=== PATIENT | male | born 1955 | race Caucasian/White ===

== ENCOUNTER 2017-06-06 07:43 | Emergency (ER) | payer OTHER, BC ==
[~2017-06-06] VITALS: Ht 172.7 cm; Wt 88.5 kg
--- NOTE | 2017-06-06 09:02 | REP ---
Left knee five views: There are no comparisons. There is diffuse demineralization. There is joint space narrowing of the medial compartment. There is slight osteophytic formation of the patellofemoral compartment. Lateral compartment is unremarkable. I suspect there is a small suprapatellar effusion. There is no fracture or dislocation. There are no calcifications or foreign bodies. 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 There is a small joint effusion. There is demineralization. No fracture or dislocation. Signed by Nikhil Jain MD 06/06/2017 08:52 A
[2017-06-06 09:19] VITALS: BP 170/104
[2017-06-06] MEDS ORDERED: NAPR500T PO (09:30)
== END 2017-06-06 09:41 | disposition home or self-care (01) ==
LOC: M ED 07:43
DX: M17.12 Unilateral primary osteoarthritis, left knee (principal); M23.92 Unspecified internal derangement of left knee; Y93.01 Activity, walking, marching and hiking; Y92.410 Unspecified street and highway as the place of occurrence of the external cause; Y99.9 Unspecified external cause status

== ENCOUNTER → 2017-06-30 | Outpatient (CLI) | payer BC ==
[~2017-06-30] MED LIST: NAPR500T PO
[2017-06-30 11:55] LABS: BASO % 0.8 % (0.0-1.0); EOS # 0.2 K/mm3 (0.0-0.50); EOS % 2.5 % (0.0-3.0); LARGE UNSTAINED CELL # 0.2 K/mm3 (0.0-0.4); LARGE UNSTAINED CELL % 2.4 % (0.0-4.0); LYMPH # 1.7 K/mm3 (1.5-4.5); LYMPH % 23.7 % (24.0-44.0); MEAN CORPUSCULAR HEMOGLOBIN 29.4 pg (27.0-33.0); MEAN CORPUSCULAR HGB CONC 33.8 g/dl (32.0-36.5); MEAN CORPUSCULAR VOLUME 86.9 fl (80.0-96.0); MONO # 0.6 K/mm3 (0.0-0.8); MONO % 7.8 % (0.0-5.0); NEUTROPHILS # 4.4 K/mm3 (1.8-7.7); NEUTROPHILS % 62.7 % (36.0-66.0); PLATELET COUNT, AUTOMATED 253 k/mm3 (150-450)
[2017-06-30 12:01] LABS: ALBUMIN 3.6 GM/DL (3.2-5.2); ALBUMIN/GLOBULIN RATIO 0.97 (1.00-1.93); ALKALINE PHOSPHATASE 75 U/L (45-117); ALT/SGPT 41 U/L (12-78); ANION GAP 7 MEQ/L (8-16); AST/SGOT 16 U/L (15-37); BILIRUBIN,TOTAL 0.7 MG/DL (0.2-1.0); BLOOD UREA NITROGEN 12 MG/DL (7-18); CALCIUM LEVEL 9.7 MG/DL (8.8-10.2); CARBON DIOXIDE LEVEL 31 MEQ/L (21-32); CHLORIDE LEVEL 105 MEQ/L (98-107); CHOLESTEROL LEVEL 214 MG/DL (<200); CREATININE FOR GFR 1.01 MG/DL (0.70-1.30); GLOMERULAR FILTRATION RATE > 60.0 (>49); GLUCOSE, FASTING 105 MG/DL (80-110); SODIUM LEVEL 143 MEQ/L (136-145); TOTAL PROTEIN 7.3 GM/DL (6.4-8.2); TRIGLYCERIDES LEVEL 144 MG/DL (<150)
[2017-06-30 12:11] LABS: POTASSIUM SERUM 5.6 MEQ/L (3.5-5.1)
== END ==
LOC: M WUC 09:35
PROVIDERS: ATTEND Physician Assistant Medical
DX: Z00.00 Encounter for general adult medical examination without abnormal findings (principal); Z12.5 Encounter for screening for malignant neoplasm of prostate; I10 Essential (primary) hypertension
CPT/HCPCS: 36415; 80053; 80061; 85025; G0103

== ENCOUNTER → 2017-08-17 | Outpatient (CLI) | payer BC ==
[2017-08-17 14:40] LABS: ANION GAP 5 MEQ/L (8-16); BLOOD UREA NITROGEN 14 MG/DL (7-18); CALCIUM LEVEL 9.6 MG/DL (8.8-10.2); CARBON DIOXIDE LEVEL 30 MEQ/L (21-32); CHLORIDE LEVEL 105 MEQ/L (98-107); CHOLESTEROL LEVEL 232 MG/DL (<200); CREATININE FOR GFR 0.85 MG/DL (0.70-1.30); GLOMERULAR FILTRATION RATE > 60.0 (>49); GLUCOSE, FASTING 95 MG/DL (80-110); POTASSIUM SERUM 4.5 MEQ/L (3.5-5.1); SODIUM LEVEL 140 MEQ/L (136-145); TRIGLYCERIDES LEVEL 152 MG/DL (<150)
[2017-08-18 14:09] LABS: PSA FREE 0.48 ng/mL
== END ==
LOC: M WUC 10:54
PROVIDERS: ATTEND Physician Assistant Medical
DX: R97.20 Elevated prostate specific antigen [PSA] (principal); R73.01 Impaired fasting glucose; E78.5 Hyperlipidemia, unspecified

== ENCOUNTER → 2017-09-28 | Outpatient (CLI) | payer BC | LOC: M WUC 16:01 | PROVIDERS: ATTEND Physician Assistant Medical | DX: R97.20 Elevated prostate specific antigen [PSA] (principal); R73.01 Impaired fasting glucose; R78.5 Finding of other psychotropic drug in blood | CPT/HCPCS: 36415; 80061; 82947; 83036; G0103 ==

== ENCOUNTER → 2018-04-05 | Outpatient (CLI) | payer BC ==
[2018-04-05 12:11] LABS: ESTIMATED AVERAGE GLUCOSE 123 MG/DL (60-110); HEMOGLOBIN A1c 5.9 %
[2018-04-05 12:27] LABS: ANION GAP 6 MEQ/L (8-16); BLOOD UREA NITROGEN 16 MG/DL (7-18); CALCIUM LEVEL 9.6 MG/DL (8.8-10.2); CARBON DIOXIDE LEVEL 31 MEQ/L (21-32); CHLORIDE LEVEL 106 MEQ/L (98-107); CHOLESTEROL LEVEL 211 MG/DL (<200); CHOLESTEROL RISK RATIO 4.688 (<5); GLOMERULAR FILTRATION RATE > 60.0 (>49); GLUCOSE, FASTING 102 MG/DL (70-100); HDL CHOLESTEROL 45 MG/DL (>40); LDL CHOLESTEROL 149.6 MG/DL (<100); NON-HDL-C 166 MG/DL; POTASSIUM SERUM 4.8 MEQ/L (3.5-5.1); PSA SCREENING 4.38 NG/ML (< 4.0); SODIUM LEVEL 143 MEQ/L (136-145); TRIGLYCERIDES LEVEL 82 MG/DL (<150)
== END ==
LOC: M WUC 10:23
DX: I10 Essential (primary) hypertension (principal); E78.5 Hyperlipidemia, unspecified; R73.01 Impaired fasting glucose; R97.20 Elevated prostate specific antigen [PSA]

== ENCOUNTER 2018-07-23 08:28 | Inpatient (IN) | payer BC ==
[2018-07-23] MEDS: LR 1,000 ML IV ×3 (09:11→13:30)
[2018-07-23] MEDS ORDERED: MIDAZOLAM INJ 2 MG/2 ML VIAL (J2250) As Ordered ×2 (10:02→10:38)
[2018-07-23] MEDS ORDERED: fentaNYL 100 MCG/2 ML INJECTION (J3010) As Ordered ×2 (10:02→10:38)
[2018-07-23] MEDS: MIDAZOLAM INJ 2 MG/2 ML VIAL (J2250) IV ×2 (10:24→10:38)
[2018-07-23] MEDS: fentaNYL 100 MCG/2 ML INJECTION (J3010) IV ×2 (10:24→10:38)
[2018-07-23] MEDS ORDERED: PROPOFOL 200 MG/20 ML VIAL As Ordered (10:34)
[2018-07-23] MEDS ORDERED: BUPIVACAINE/DEXTROSE 0.75% 2 ML AMP As Ordered (10:36)
[2018-07-23] MEDS ORDERED: fentaNYL 100 MCG/2 ML INJECTION (J3010) IV ×2 (11:15→13:30)
[2018-07-23] MEDS ORDERED: LIDOCAINE 2% INJ 100 MG/5 ML SDV (FOR ANES.) As Ordered (11:49)
[2018-07-23] MEDS ORDERED: dexameTHASONE 4 MG/ML 1ML VIAL (J1100) As Ordered ×3 (11:49)
[2018-07-23] MEDS ORDERED: ONDANSETRON 4MG/2ML VIAL (J2405) As Ordered (11:49)
[2018-07-23] MEDS: BUPIVACAINE LIPOSOME/PF 1.3% 20 ML VIAL (13.3MG/ML)(EXPAREL) As Ordered (11:50)
[2018-07-23] MEDS: TRANEXAMIC ACID 100 MG/ML 10ML VIAL As Ordered (11:50)
[2018-07-23] MEDS: EPINEPHrine INJ 1 MG/ML 1ML AMP As Ordered (11:50)
[2018-07-23] MEDS: ceFAZolin 1GM INJ (J0690 PER 500MG) As Ordered (11:50)
[2018-07-23] MEDS ORDERED: MORPHINE 1MG/ML IN 0.9% NACL 100ML IV BAG As Ordered (12:38)
[2018-07-23] MEDS ORDERED: EPIDURAL/PCA KEYS XX (13:30)
[2018-07-23] MEDS ORDERED: ONDANSETRON 4MG/2ML VIAL (J2405) IV ×3 (13:30)
[2018-07-23] MEDS ORDERED: NALBUPHINE HCL 10 MG/ML AMP (J2300) IV (13:30)
[2018-07-23] MEDS ORDERED: FLEET ENEMA PR (13:30)
[2018-07-23] MEDS ORDERED: MORPHINE 1MG/ML IN 0.9% NACL 100ML IV BAG IV (13:30)
[2018-07-23] MEDS ORDERED: diphenhydrAMINE INJ 50MG/ML VIAL (J1200) IV (13:30)
[2018-07-23] MEDS ORDERED: ACETAMINOPHEN TAB 650MG DOSE (2X325MG) PO (13:30)
[2018-07-23] MEDS ORDERED: METOCLOPRAMIDE INJ 10MG/2ML VIAL (J2765) IV (13:30)
[2018-07-23] MEDS ORDERED: NALOXONE INJ 0.4 MG/1 ML VIAL (J2310) IV (13:30)
[2018-07-23] MEDS: PERCOCET 5MG/325MG TAB PO (14:15)
[2018-07-23] MEDS ORDERED: BISACODYL 5 MG TAB PO (14:30)
[2018-07-23] MEDS: amLODIPine 10 MG TAB PO (17:29)
[2018-07-23] MEDS: SENOKOT S TAB PO (19:57)
[2018-07-23] MEDS ORDERED: DOCUSATE SODIUM 100 MG CAP PO (21:00)
[2018-07-24] MEDS: LR 1,000 ML IV (03:21)
[2018-07-24] MEDS: amLODIPine 10 MG TAB PO ×2 (03:22→08:07)
[2018-07-24] MEDS ORDERED: ONDANSETRON 4 MG TAB (S0181) PO (06:45)
[2018-07-24 07:22] LABS: HEMATOCRIT 37.5 % (42.0-52.0); HEMOGLOBIN 12.9 g/dl (13.5-17.5); MEAN CORPUSCULAR HEMOGLOBIN 29.1 pg (27.0-33.0); MEAN CORPUSCULAR HGB CONC 34.4 g/dl (32.0-36.5); MEAN CORPUSCULAR VOLUME 84.5 fl (80.0-96.0); PLATELET COUNT, AUTOMATED 258 10^3/uL (150-450); RED BLOOD COUNT 4.44 10^6/uL (4.30-6.10); RED CELL DISTRIBUTION WIDTH 13.2 % (11.5-14.5); WHITE BLOOD COUNT 19.5 10^3/uL (4.0-10.0)
[2018-07-24] MEDS: MIRALAX *UNIT DOSE* 17GM PACKET PO (08:04)
[2018-07-24] MEDS: MOM 30ML SUSPENSION UDC PO (08:04)
[2018-07-24] MEDS: RIVAROXABAN 10 MG TAB (XARELTO) PO (08:07)
[2018-07-24] MEDS: PERCOCET 5MG/325MG TAB PO (08:07)
[2018-07-24] MEDS: SENOKOT S TAB PO ×2 (08:07→20:38)
[2018-07-24] MEDS: LISINOPRIL 20 MG TAB PO (08:07)
[2018-07-24 08:10] LABS: ALBUMIN 3.4 GM/DL (3.2-5.2); ALBUMIN/GLOBULIN RATIO 0.92 (1.00-1.93); ALKALINE PHOSPHATASE 56 U/L (45-117); ALT/SGPT 26 U/L (12-78); ANION GAP 9 MEQ/L (8-16); AST/SGOT 15 U/L (7-37); BILIRUBIN,TOTAL 0.5 MG/DL (0.2-1.0); BLOOD UREA NITROGEN 15 MG/DL (7-18); CALCIUM LEVEL 10.1 MG/DL (8.8-10.2); CARBON DIOXIDE LEVEL 25 MEQ/L (21-32); CHLORIDE LEVEL 104 MEQ/L (98-107); CREATININE FOR GFR 1.16 MG/DL (0.70-1.30); GLOMERULAR FILTRATION RATE > 60.0 (>49); GLUCOSE, FASTING 161 MG/DL (70-100); MAGNESIUM LEVEL 1.8 MG/DL (1.8-2.4); SODIUM LEVEL 138 MEQ/L (136-145); TOTAL PROTEIN 7.1 GM/DL (6.4-8.2)
[2018-07-24] MEDS ORDERED: TAMSULOSIN 0.4 MG CAP PO (09:00)
[2018-07-24] MEDS: TAMSULOSIN 0.4 MG CAP PO (15:57)
[2018-07-25] MEDS: PERCOCET 5MG/325MG TAB PO (06:22)
[2018-07-25 07:25] LABS: HEMATOCRIT 35.1 % (42.0-52.0); HEMOGLOBIN 11.9 g/dl (13.5-17.5); MEAN CORPUSCULAR HEMOGLOBIN 28.7 pg (27.0-33.0); MEAN CORPUSCULAR HGB CONC 33.9 g/dl (32.0-36.5); MEAN CORPUSCULAR VOLUME 84.6 fl (80.0-96.0); PLATELET COUNT, AUTOMATED 236 10^3/uL (150-450); RED BLOOD COUNT 4.15 10^6/uL (4.30-6.10); RED CELL DISTRIBUTION WIDTH 13.5 % (11.5-14.5)
[2018-07-25 07:53] LABS: ESTIMATED AVERAGE GLUCOSE 126 MG/DL (60-110)
[2018-07-25 08:01] LABS: ANION GAP 8 MEQ/L (8-16); BLOOD UREA NITROGEN 12 MG/DL (7-18); CARBON DIOXIDE LEVEL 27 MEQ/L (21-32); CHLORIDE LEVEL 107 MEQ/L (98-107); CHOLESTEROL LEVEL 168 MG/DL (<200); CHOLESTEROL RISK RATIO 2.947 (<5); CREATININE FOR GFR 1.03 MG/DL (0.70-1.30); GLOMERULAR FILTRATION RATE > 60.0 (>49); GLUCOSE, FASTING 124 MG/DL (70-100); HDL CHOLESTEROL 57 MG/DL (>40); LDL CHOLESTEROL 85 MG/DL (<100); MAGNESIUM LEVEL 1.9 MG/DL (1.8-2.4); NON-HDL-C 111 MG/DL; POTASSIUM SERUM 4.1 MEQ/L (3.5-5.1); SODIUM LEVEL 142 MEQ/L (136-145); TRIGLYCERIDES LEVEL 129 MG/DL (<150)
[2018-07-25] MEDS: SENOKOT S TAB PO (08:15)
[2018-07-25] MEDS: MIRALAX *UNIT DOSE* 17GM PACKET PO (08:15)
[2018-07-25] MEDS: RIVAROXABAN 10 MG TAB (XARELTO) PO (08:15)
[2018-07-25] MEDS: MOM 30ML SUSPENSION UDC PO (08:15)
[2018-07-25] MEDS: TAMSULOSIN 0.4 MG CAP PO (08:15)
[2018-07-25] MEDS: LISINOPRIL 20 MG TAB PO (08:16)
[2018-07-25] MEDS: amLODIPine 10 MG TAB PO (08:16)
== END 2018-07-25 13:50 | disposition home health service (06) | DRG 302 ==
LOC: M OR 08:28 → M MS5PR 15:35
PROC: 0SRD0J9 Replacement of Left Knee Joint with Synthetic Substitute, Cemented, Open Approach (ICD-10-PCS; principal; 2018-07-23 11:00)
DX: M17.12 Unilateral primary osteoarthritis, left knee (principal); I11.9 Hypertensive heart disease without heart failure; R33.9 Retention of urine, unspecified; R73.01 Impaired fasting glucose; E78.5 Hyperlipidemia, unspecified; Z87.891 Personal history of nicotine dependence; Z79.899 Other long term (current) drug therapy

== ENCOUNTER → 2018-10-18 | Outpatient (CLI) | payer BC ==
[2018-10-18 11:25] LABS: PROSTATIC SPECIFIC AG MONITOR 5.7 NG/ML (< 4.0)
== END ==
LOC: M WUC 09:23
DX: R97.20 Elevated prostate specific antigen [PSA] (principal)
CPT/HCPCS: 84153

== ENCOUNTER → 2019-04-25 | Outpatient (CLI) | payer BC ==
[~2019-04-25] MED LIST changes: +ALEV220T26 PO; +AMLO10TA5 PO; +FLOM0.4C39 PO; +LISI-538 PO; +LISI40TA PO; +NAPR-837 PO; +NAPR-885 PO; -NAPR500T PO; +PERC5TAB12 PO; +XARE10TA PO
[2019-04-25 13:12] LABS: ALBUMIN 3.9 GM/DL (3.2-5.2); ALT/SGPT 39 U/L (12-78); BILIRUBIN,TOTAL 0.7 MG/DL (0.2-1.0); BLOOD UREA NITROGEN 11 MG/DL (7-18); CALCIUM LEVEL 10.2 MG/DL (8.8-10.2); CARBON DIOXIDE LEVEL 31 MEQ/L (21-32); CHLORIDE LEVEL 104 MEQ/L (98-107); CHOLESTEROL LEVEL 250 MG/DL (<200); CHOLESTEROL RISK RATIO 5.434 (<5); CREATININE FOR GFR 0.98 MG/DL (0.70-1.30); GLOMERULAR FILTRATION RATE > 60.0 (>49); GLUCOSE, FASTING 108 MG/DL (70-100); HDL CHOLESTEROL 46 MG/DL (>40); LDL CHOLESTEROL 173 MG/DL (<100); NON-HDL-C 204 MG/DL; SODIUM LEVEL 140 MEQ/L (136-145); TOTAL PROTEIN 7.7 GM/DL (6.4-8.2); TRIGLYCERIDES LEVEL 154 MG/DL (<150)
[2019-04-25 14:13] LABS: HEMOGLOBIN A1c 6.6 %
== END ==
LOC: M WUC 09:18
PROVIDERS: ATTEND Physician Assistant Medical
DX: R73.01 Impaired fasting glucose (principal); I10 Essential (primary) hypertension; E78.5 Hyperlipidemia, unspecified; R97.20 Elevated prostate specific antigen [PSA]
CPT/HCPCS: 36415; 80053; 80061; 83036; G0103

== ENCOUNTER → 2019-11-01 | Outpatient (CLI) | payer BC ==
[2019-11-01 13:30] LABS: ALBUMIN 3.8 GM/DL (3.2-5.2); ALT/SGPT 64 U/L (12-78); BILIRUBIN,TOTAL 0.6 MG/DL (0.2-1.0); BLOOD UREA NITROGEN 13 MG/DL (7-18); CARBON DIOXIDE LEVEL 29 MEQ/L (21-32); CHLORIDE LEVEL 105 MEQ/L (98-107); CHOLESTEROL LEVEL 244 MG/DL (<200); CHOLESTEROL RISK RATIO 5.674 (<5); CREATININE FOR GFR 1.09 MG/DL (0.70-1.30); GLOMERULAR FILTRATION RATE > 60.0 (>49); GLUCOSE, FASTING 113 MG/DL (70-100); HDL CHOLESTEROL 43 MG/DL (>40); LDL CHOLESTEROL 161 MG/DL (<100); NON-HDL-C 201 MG/DL; POTASSIUM SERUM 5.1 MEQ/L (3.5-5.1); SODIUM LEVEL 141 MEQ/L (136-145); TOTAL PROTEIN 7.8 GM/DL (6.4-8.2); TRIGLYCERIDES LEVEL 198 MG/DL (<150)
[2019-11-01 13:41] LABS: HEMOGLOBIN A1c 6.5 %
== END ==
LOC: M WUC 09:07
PROVIDERS: ATTEND Physician Assistant
DX: I10 Essential (primary) hypertension (principal); R73.01 Impaired fasting glucose; R97.20 Elevated prostate specific antigen [PSA]; E78.5 Hyperlipidemia, unspecified
CPT/HCPCS: 36415; 80053; 80061; 83036; G0103

== ENCOUNTER → 2020-04-27 | Outpatient (CLI) | payer BC ==
[2020-04-27 10:32] LABS: HEMOGLOBIN A1c 6.9 %
[2020-04-27 10:47] LABS: ALBUMIN 3.6 GM/DL (3.2-5.2); ALT/SGPT 46 U/L (12-78); BILIRUBIN,TOTAL 0.5 MG/DL (0.2-1.0); BLOOD UREA NITROGEN 13 MG/DL (7-18); CALCIUM LEVEL 9.3 MG/DL (8.8-10.2); CARBON DIOXIDE LEVEL 29 MEQ/L (21-32); CHLORIDE LEVEL 105 MEQ/L (98-107); CHOLESTEROL LEVEL 227 MG/DL (<200); CHOLESTEROL RISK RATIO 5.536 (<5); CREATININE FOR GFR 0.83 MG/DL (0.70-1.30); GLOMERULAR FILTRATION RATE > 60.0 (>49); GLUCOSE, FASTING 105 MG/DL (70-100); HDL CHOLESTEROL 41 MG/DL (>40); LDL CHOLESTEROL 146 MG/DL (<100); NON-HDL-C 186 MG/DL; POTASSIUM SERUM 4.5 MEQ/L (3.5-5.1); SODIUM LEVEL 139 MEQ/L (136-145); TOTAL PROTEIN 7.1 GM/DL (6.4-8.2); TRIGLYCERIDES LEVEL 201 MG/DL (<150)
== END ==
LOC: M WUC 08:30
PROVIDERS: ATTEND Physician Assistant
DX: I10 Essential (primary) hypertension (principal); R73.01 Impaired fasting glucose; R97.20 Elevated prostate specific antigen [PSA]; E78.5 Hyperlipidemia, unspecified
CPT/HCPCS: 36415; 80053; 80061; 83036; G0103

== ENCOUNTER → 2020-07-23 | Outpatient (CLI) | payer BC ==
[~2020-07-23] MED LIST changes: -AMLO10TA5 PO; +AMLO1TAB25 PO; +HYDR25TAB PO
[2020-07-23 13:34] LABS: ALBUMIN 3.4 GM/DL (3.2-5.2); ALT/SGPT 37 U/L (12-78); BILIRUBIN,TOTAL 0.6 MG/DL (0.2-1.0); BLOOD UREA NITROGEN 14 MG/DL (7-18); CALCIUM LEVEL 9.7 MG/DL (8.8-10.2); CARBON DIOXIDE LEVEL 31 MEQ/L (21-32); CHLORIDE LEVEL 105 MEQ/L (98-107); CHOLESTEROL LEVEL 224 MG/DL (<200); GLOMERULAR FILTRATION RATE > 60.0 (>49); GLUCOSE, FASTING 95 MG/DL (70-100); HDL CHOLESTEROL 50 MG/DL (>40); LDL CHOLESTEROL 146 MG/DL (<100); NON-HDL-C 174 MG/DL; POTASSIUM SERUM 5.5 MEQ/L (3.5-5.1); SODIUM LEVEL 139 MEQ/L (136-145); TOTAL PROTEIN 7.3 GM/DL (6.4-8.2); TRIGLYCERIDES LEVEL 141 MG/DL (<150)
[2020-07-23 13:47] LABS: CREATININE, URINE 97.4 MG/DL; HEMOGLOBIN A1c 6.1 %; MAU/CREAT RATIO 296.7 MCG/MG (0.0-30.0)
== END ==
LOC: M WUC 09:19
PROVIDERS: ATTEND Physician Assistant
DX: R73.01 Impaired fasting glucose (principal); E78.5 Hyperlipidemia, unspecified

== ENCOUNTER → 2020-08-21 | Outpatient (CLI) | payer BC ==
[~2020-08-21] MED LIST changes: +HYDR25TAB; -HYDR25TAB PO
== END ==
LOC: M LABSMTC 08:09
PROVIDERS: ATTEND Anesthesiology
DX: Z01.812 Encounter for preprocedural laboratory examination (principal); Z20.828 Contact with and (suspected) exposure to other viral communicable diseases
CPT/HCPCS: C9803; U0003

== ENCOUNTER 2020-08-26 06:22 | Day surgery (SDC) | payer BC ==
[~2020-08-26] VITALS: Ht 172.7 cm; Wt 86.2 kg
[~2020-08-26 06:22] MED LIST changes: -HYDR25TAB; +HYDR25TAB PO
[2020-08-26] MEDS ORDERED: DUOVISC (0.50ML VISCOAT/0.55ML PROVISC) OPHTH KIT As Ordered ONE (06:41)
[2020-08-26] MEDS ORDERED: POVIDONE-IODINE 5% OPHTH PREP SOL 30ML As Ordered ONE (06:41)
[2020-08-26] MEDS ORDERED: CEFUROXIME 1MG/0.1ML INTRACAMERAL INJ As Ordered ONE (06:41)
[2020-08-26] MEDS ORDERED: BSS IRR 500ML/OMIDRIA 4ML IRR BAG (OR ONLY) (J1097 PER ML) As Ordered ONE (06:49)
[2020-08-26] MEDS ORDERED: PROPARACAINE 0.5% OPHTH SOL 15ML OD ONE (07:00)
[2020-08-26] MEDS ORDERED: PHENYLEPHRINE 2.5% OPHTH SOL 2ML OD ONE (07:00)
[2020-08-26] MEDS ORDERED: OFLOXACIN 0.3 % (OCUFLOX) OPTH SOL 5ML OD ONE (07:00)
[2020-08-26] MEDS ORDERED: TROPICAMIDE 1% OPHTH SOLN 2ML OD ONE (07:00)
[2020-08-26] MEDS ORDERED: fentaNYL 100 MCG/2 ML INJECTION (J3010) As Ordered ONE (07:05)
[2020-08-26] MEDS ORDERED: MIDAZOLAM INJ 2MG/2ML VIAL (J2250 PER 1MG) As Ordered ONE (07:05)
[2020-08-26 08:25] VITALS: BP 129/75
== END 2020-08-26 08:40 | disposition home or self-care (01) ==
LOC: M SDC 06:22
PROVIDERS: ATTEND Ophthalmology
DX: H25.11 Age-related nuclear cataract, right eye (principal); I10 Essential (primary) hypertension; Z79.899 Other long term (current) drug therapy
CPT/HCPCS: 66984; J1097; J2250; J3010

== ENCOUNTER → 2020-09-18 | Outpatient (CLI) | payer BC | LOC: M LABSMTC 08:07 | PROVIDERS: ATTEND Anesthesiology | DX: Z01.818 Encounter for other preprocedural examination (principal); Z20.828 Contact with and (suspected) exposure to other viral communicable diseases | CPT/HCPCS: C9803; U0003 ==

== ENCOUNTER 2020-09-23 07:00 | Day surgery (SDC) | payer BC ==
[~2020-09-23] VITALS: Ht 172.7 cm; Wt 84.8 kg
[~2020-09-23 07:00] MED LIST changes: +BSS IRR 500ML/OMIDRIA 4ML IRR BAG (OR ONLY) (J1097 PER ML) As Ordered ONE; +CEFUROXIME 1MG/0.1ML INTRACAMERAL INJ As Ordered ONE; +DUOVISC (0.50ML VISCOAT/0.55ML PROVISC) OPHTH KIT As Ordered ONE; +OFLOXACIN 0.3 % (OCUFLOX) OPTH SOL 5ML OS ONE; +PHENYLEPHRINE 2.5% OPHTH SOL 2ML OS ONE; +POVIDONE-IODINE 5% OPHTH PREP SOL 30ML As Ordered ONE; +PROPARACAINE 0.5% OPHTH SOL 15ML OS ONE; +TROPICAMIDE 1% OPHTH SOLN 2ML OS ONE
[2020-09-23] MEDS ORDERED: MIDAZOLAM INJ 2MG/2ML VIAL (J2250 PER 1MG) As Ordered ONE (07:08)
[2020-09-23] MEDS ORDERED: fentaNYL 100 MCG/2 ML INJECTION (J3010) As Ordered ONE (07:09)
[2020-09-23 09:50] VITALS: BP 129/82
== END 2020-09-23 09:50 | disposition home or self-care (01) ==
LOC: M SDC 07:00
PROVIDERS: ATTEND Ophthalmology
DX: H25.12 Age-related nuclear cataract, left eye (principal); I10 Essential (primary) hypertension; R73.03 Prediabetes; M10.9 Gout, unspecified; Z79.899 Other long term (current) drug therapy
CPT/HCPCS: 66984; J2250; J3010

== ENCOUNTER → 2021-01-21 | Outpatient (CLI) | payer BC ==
[~2021-01-21] MED LIST changes: -BSS IRR 500ML/OMIDRIA 4ML IRR BAG (OR ONLY) (J1097 PER ML) As Ordered ONE; -CEFUROXIME 1MG/0.1ML INTRACAMERAL INJ As Ordered ONE; -DUOVISC (0.50ML VISCOAT/0.55ML PROVISC) OPHTH KIT As Ordered ONE; +HYDR-3490 PO; -HYDR25TAB PO; -LISI-538 PO; +LISI20TA33 PO; -LISI40TA PO; +LISI40TA4 PO; -OFLOXACIN 0.3 % (OCUFLOX) OPTH SOL 5ML OS ONE; -PHENYLEPHRINE 2.5% OPHTH SOL 2ML OS ONE; -POVIDONE-IODINE 5% OPHTH PREP SOL 30ML As Ordered ONE; -PROPARACAINE 0.5% OPHTH SOL 15ML OS ONE; -TROPICAMIDE 1% OPHTH SOLN 2ML OS ONE
[2021-01-21 11:11] LABS: BLOOD UREA NITROGEN 24 MG/DL (7-18); CARBON DIOXIDE LEVEL 31 MEQ/L (21-32); CHLORIDE LEVEL 104 MEQ/L (98-107); CREATININE FOR GFR 1.18 MG/DL (0.70-1.30); GLOMERULAR FILTRATION RATE > 60.0 (>49); GLUCOSE, FASTING 118 MG/DL (70-100); POTASSIUM SERUM 4.6 MEQ/L (3.5-5.1); SODIUM LEVEL 140 MEQ/L (136-145)
== END ==
LOC: M WUC 08:27
PROVIDERS: ATTEND Nurse Practitioner Family
DX: E87.5 Hyperkalemia (principal)

== ENCOUNTER → 2021-07-29 | Outpatient (CLI) | payer BC ==
[2021-07-29 16:40] LABS: ALBUMIN 3.8 GM/DL (3.2-5.2); ALT/SGPT 39 U/L (12-78); BILIRUBIN,TOTAL 0.9 MG/DL (0.2-1.0); BLOOD UREA NITROGEN 15 MG/DL (7-18); CALCIUM LEVEL 9.9 MG/DL (8.8-10.2); CARBON DIOXIDE LEVEL 29 MEQ/L (21-32); CHLORIDE LEVEL 103 MEQ/L (98-107); CHOLESTEROL LEVEL 201 MG/DL (<200); CHOLESTEROL RISK RATIO 4.276 (<5); CREATININE FOR GFR 0.98 MG/DL (0.70-1.30); GLOMERULAR FILTRATION RATE > 60.0 (>49); GLUCOSE, FASTING 92 MG/DL (70-100); HDL CHOLESTEROL 47 MG/DL (>40); LDL CHOLESTEROL 132 MG/DL (<100); NON-HDL-C 154 MG/DL; POTASSIUM SERUM 4.2 MEQ/L (3.5-5.1); SODIUM LEVEL 138 MEQ/L (136-145); TOTAL PROTEIN 7.5 GM/DL (6.4-8.2); TRIGLYCERIDES LEVEL 109 MG/DL (<150)
[2021-07-29 16:54] LABS: MALB URINE SIEMENS 40.3 MG/L
[2021-07-29 17:13] LABS: HEMOGLOBIN A1c 6.5 %
== END ==
LOC: M WUC 14:49
PROVIDERS: ATTEND Nurse Practitioner Family
DX: R73.03 Prediabetes (principal); I10 Essential (primary) hypertension; R97.20 Elevated prostate specific antigen [PSA]
CPT/HCPCS: 36415; 80053; 80061; 82043; 83036; G0103

== ENCOUNTER → 2022-08-04 | Outpatient (CLI) | payer BC, MEDICARE ==
[2022-08-04 12:47] LABS: HEMOGLOBIN A1c 6.6 %
[2022-08-04 13:04] LABS: ALBUMIN 3.7 GM/DL (3.2-5.2); ALT/SGPT 44 U/L (12-78); BILIRUBIN,TOTAL 0.7 MG/DL (0.2-1.0); BLOOD UREA NITROGEN 15 MG/DL (7-18); CALCIUM LEVEL 9.3 MG/DL (8.8-10.2); CARBON DIOXIDE LEVEL 29 MEQ/L (21-32); CHLORIDE LEVEL 107 MEQ/L (98-107); CHOLESTEROL LEVEL 209 MG/DL (<200); CHOLESTEROL RISK RATIO 4.354 (<5); CREATININE FOR GFR 0.96 MG/DL (0.70-1.30); GLOMERULAR FILTRATION RATE > 60.0 (>49); GLUCOSE, FASTING 119 MG/DL (70-100); HDL CHOLESTEROL 48 MG/DL (>40); LDL CHOLESTEROL 142 MG/DL (<100); NON-HDL-C 161 MG/DL; POTASSIUM SERUM 4.6 MEQ/L (3.5-5.1); SODIUM LEVEL 139 MEQ/L (136-145); TOTAL PROTEIN 7.1 GM/DL (6.4-8.2); TRIGLYCERIDES LEVEL 97 MG/DL (<150)
[2022-08-04 13:12] LABS: MALB URINE SIEMENS 14.4 MG/L; MAU/CREAT RATIO 14.1 MCG/MG (0.0-30.0)
== END ==
LOC: M WUC 09:01
PROVIDERS: ATTEND Nurse Practitioner Family
DX: E78.5 Hyperlipidemia, unspecified (principal); I10 Essential (primary) hypertension; R73.03 Prediabetes; R97.20 Elevated prostate specific antigen [PSA]
CPT/HCPCS: 36415; 80053; 80061; 82043; 83036; G0103

== ENCOUNTER → 2023-04-12 | Outpatient (CLI) | payer MEDICARE ==
[2023-04-12 12:34] LABS: BASO # 0.1 10^3/uL (0.0-0.2); EOS # 0.3 10^3/uL (0.0-0.5); EOS % 4.1 % (0.0-3.0); HEMATOCRIT 41.2 % (42.0-52.0); HEMOGLOBIN 13.6 g/dl (13.5-17.5); LYMPH % 24.9 % (24.0-44.0); MEAN CORPUSCULAR HEMOGLOBIN 28.6 pg (27.0-33.0); MEAN CORPUSCULAR VOLUME 86.7 fl (80.0-96.0); MONO # 0.8 10^3/uL (0.0-0.8); MONO % 10.1 % (2.0-8.0); NEUTROPHILS # 4.6 10^3/uL (1.5-8.5); PLATELET COUNT, AUTOMATED 322 10^3/uL (150-450); RED BLOOD COUNT 4.75 10^6/uL (4.30-6.10); WHITE BLOOD COUNT 7.8 10^3/uL (4.0-10.0)
[2023-04-12 12:48] LABS: HEMOGLOBIN A1c 7.1 % (4.0-6.0)
[2023-04-12 13:04] LABS: BLOOD UREA NITROGEN 12 MG/DL (9-23); CARBON DIOXIDE LEVEL 28 MMOL/L (20-31); CHLORIDE LEVEL 104 MMOL/L (98-107); CREATININE FOR GFR 0.76 MG/DL (0.70-1.30); GLOMERULAR FILTRATION RATE > 60.0 (>49); GLUCOSE, FASTING 159 MG/DL (74-106); SODIUM LEVEL 138 MMOL/L (136-145)
== END ==
LOC: M WUC 10:11
PROVIDERS: ATTEND Nurse Practitioner Family
DX: I10 Essential (primary) hypertension (principal)

== ENCOUNTER 2023-05-02 09:33 | Day surgery (SDC) | payer MEDICARE ==
[~2023-05-02] VITALS: Ht 172.7 cm; Wt 83.5 kg
[~2023-05-02 09:33] MED LIST changes: +CelecoXIB 400 MG CAP PO ONE; +ceFAZolin SOD 2 GM in IV 1 EA IV ONE
[2023-05-02] MEDS ORDERED: LR 1,000 ML IV SCH ×2 (10:35→13:15)
[2023-05-02] MEDS ORDERED: fentaNYL 100 MCG/2 ML INJECTION As Ordered ONE (10:38)
[2023-05-02] MEDS ORDERED: MIDAZOLAM INJ 2MG/2ML VIAL As Ordered ONE (10:38)
[2023-05-02] MEDS ORDERED: LIDOCAINE 2% 100MG/5ML SDV (FOR ANES.) As Ordered ONE (10:38)
[2023-05-02] MEDS ORDERED: ROCURONIUM BROMIDE 50MG/5ML VIAL As Ordered ONE (10:39)
[2023-05-02] MEDS ORDERED: METOCLOPRAMIDE INJ 10MG/2ML VIAL As Ordered ONE (10:39)
[2023-05-02] MEDS ORDERED: ONDANSETRON 4MG 2ML VIAL As Ordered ONE (10:39)
[2023-05-02] MEDS ORDERED: propofoL 200 MG/20 ML VIAL As Ordered ONE (10:39)
[2023-05-02] MEDS ORDERED: LIDOCAINE 1% SDV 30ML VIAL As Ordered ONE (11:16)
[2023-05-02] MEDS ORDERED: ACETAMINOPHEN 1000MG 100ML IV BAG As Ordered ONE (12:11)
[2023-05-02] MEDS ORDERED: oxyCODONE 5MG TAB PO PRN (13:15)
[2023-05-02] MEDS ORDERED: ONDANSETRON 4MG 2ML VIAL IV PRN (13:15)
[2023-05-02] MEDS ORDERED: HYDROMORPHONE HCL 0.5 MG/ 0.5 ML SYRINGE IV PRN (13:15)
[2023-05-02] MEDS ORDERED: fentaNYL 100 MCG/2 ML INJECTION IV PRN (13:15)
[2023-05-02] MEDS ORDERED: NORCO, ANEXSIA 5/325MG TABLET (HYDROcodone/ACETAMINOPHEN) PO PRN ×2 (13:30)
[2023-05-02] MEDS ORDERED: KETOROLAC 30 MG/ML 1ML VIAL IV SCH (14:00)
[2023-05-02 14:25] VITALS: BP 157/85; TEMP 97.2; O2SAT 98
== END 2023-05-02 14:37 | disposition home or self-care (01) ==
LOC: M SDC 09:33
PROVIDERS: ATTEND Surgery
DX: K40.90 Unilateral inguinal hernia, without obstruction or gangrene, not specified as recurrent (principal); R59.0 Localized enlarged lymph nodes; D17.6 Benign lipomatous neoplasm of spermatic cord; I10 Essential (primary) hypertension; Z87.891 Personal history of nicotine dependence
CPT/HCPCS: 49505; 88305; C1781; J0131; J0690; J1100; J1885; J2250; J2405; J2765; J3010

== ENCOUNTER → 2023-08-02 | Outpatient (CLI) | payer MEDICARE ==
[~2023-08-02] MED LIST changes: -CelecoXIB 400 MG CAP PO ONE; -ceFAZolin SOD 2 GM in IV 1 EA IV ONE
== END ==
LOC: M WUC 10:20
PROVIDERS: ATTEND Registered Nurse
DX: E78.5 Hyperlipidemia, unspecified (principal); I10 Essential (primary) hypertension; R97.20 Elevated prostate specific antigen [PSA]

== ENCOUNTER → 2023-08-03 | Outpatient (CLI) | payer MEDICARE ==
[2023-08-03 13:04] LABS: ALBUMIN 3.8 G/DL (3.2-5.2); ALKALINE PHOSPHATASE 83 U/L (46-116); ALT/SGPT 55 U/L (7.0-40); AST/SGOT 27 U/L (<34); BILIRUBIN,TOTAL 0.8 MG/DL (0.3-1.2); BLOOD UREA NITROGEN 19 MG/DL (9-23); CARBON DIOXIDE LEVEL 29 MMOL/L (20-31); CHLORIDE LEVEL 105 MMOL/L (98-107); CHOLESTEROL LEVEL 223 MG/DL (<200); CHOLESTEROL RISK RATIO 4.38 (<5); CREATININE FOR GFR 0.93 MG/DL (0.70-1.30); GLOMERULAR FILTRATION RATE > 60.0 (>49); GLUCOSE, FASTING 128 MG/DL (74-106); HDL CHOLESTEROL 50.8 MG/DL (>40); LDL CHOLESTEROL 153.2 MG/DL (<100); NON-HDL-C 172.2 MG/DL; POTASSIUM SERUM 4.6 MMOL/L (3.5-5.1); SODIUM LEVEL 140 MMOL/L (136-145); TOTAL PROTEIN 7.1 G/DL (5.7-8.2); TRIGLYCERIDES LEVEL 95 MG/DL (<150)
[2023-08-03 13:17] LABS: HEMOGLOBIN A1c 6.4 % (4.0-6.0)
[2023-08-04 08:10] LABS: PSA % FREE 17.9 % (.); PSA FREE 0.75 ng/mL; PSA TOTAL 4.2 ng/mL (0.0-4.0)
== END ==
LOC: M WUC 09:13
PROVIDERS: ATTEND Registered Nurse
DX: E78.5 Hyperlipidemia, unspecified (principal); I10 Essential (primary) hypertension; R97.20 Elevated prostate specific antigen [PSA]

== ENCOUNTER → 2023-09-27 | Outpatient (REF) | payer MEDICARE | LOC: M WUC 16:05 | PROVIDERS: ATTEND Nurse Practitioner Family | DX: R97.20 Elevated prostate specific antigen [PSA] (principal); Z12.5 Encounter for screening for malignant neoplasm of prostate | CPT/HCPCS: 36415; G0103 ==

== ENCOUNTER → 2024-01-31 | Outpatient (REF) | payer MEDICARE ==
[2024-01-31 13:57] LABS: HEMOGLOBIN A1c 7.4 % (4.0-6.0)
== END ==
LOC: M LABWUC 12:36
PROVIDERS: ATTEND Nurse Practitioner Family
DX: E11.9 Type 2 diabetes mellitus without complications (principal)

== ENCOUNTER → 2024-08-14 | Outpatient (CLI) | payer MEDICARE ==
[2024-08-14 11:55] LABS: CREATININE, URINE 112.5 MG/DL; MAU/CREAT RATIO 3.5 MCG/MG (0.0-30.0); PSA SCREENING 4.15 NG/ML (< 4.00)
[2024-08-14 11:57] LABS: ALBUMIN 3.9 G/DL (3.2-5.2); ALKALINE PHOSPHATASE 86 U/L (46-116); ALT/SGPT 58 U/L (7.0-40); AST/SGOT 28 U/L (<34); BILIRUBIN,TOTAL 0.9 MG/DL (0.3-1.2); BLOOD UREA NITROGEN 13 MG/DL (9-23); CARBON DIOXIDE LEVEL 28 MMOL/L (20-31); CHLORIDE LEVEL 106 MMOL/L (98-107); CHOLESTEROL LEVEL 246 MG/DL (<200); CREATININE FOR GFR 0.92 MG/DL (0.70-1.30); GLOMERULAR FILTRATION RATE > 60.0 (>49); GLUCOSE, FASTING 119 MG/DL (74-106); HDL CHOLESTEROL 44.7 MG/DL (>40); LDL CHOLESTEROL 178.5 MG/DL (<100); NON-HDL-C 201.3 MG/DL; POTASSIUM SERUM 4.2 MMOL/L (3.5-5.1); SODIUM LEVEL 138 MMOL/L (136-145); TOTAL PROTEIN 7.3 G/DL (5.7-8.2); TRIGLYCERIDES LEVEL 114 MG/DL (<150)
== END ==
LOC: M WUC 08:47
PROVIDERS: ATTEND Nurse Practitioner Family
DX: I10 Essential (primary) hypertension (principal); E11.9 Type 2 diabetes mellitus without complications; E78.5 Hyperlipidemia, unspecified; R97.20 Elevated prostate specific antigen [PSA]; Z12.5 Encounter for screening for malignant neoplasm of prostate
CPT/HCPCS: 36415; 80053; 80061; 82043; 83036; G0103

== ENCOUNTER → 2025-02-12 | Outpatient (REF) | payer MEDICARE ==
[2025-02-12 12:59] LABS: HEMOGLOBIN A1c 7.1 % (4.0-6.0)
== END ==
LOC: M LABWUC 12:16
PROVIDERS: ATTEND Nurse Practitioner Family
DX: E11.9 Type 2 diabetes mellitus without complications (principal)

== ENCOUNTER 2025-07-06 08:39 | Inpatient (IN) | payer MEDICARE ==
[~2025-07-06] VITALS: Ht 172.7 cm; Wt 82.0 kg
[~2025-07-06 08:39] MED LIST changes: -FLOM0.4C39 PO; +LISI40TA10 PO; -LISI40TA4 PO; +TAMS-18 PO
[2025-07-06 09:18] LABS: PLATELET COUNT, AUTOMATED 273 10^3/uL (150-450)
[2025-07-06] MEDS ORDERED: HOME MED LIST COMPLETE! XX SCH (09:40)
[2025-07-06 09:46] LABS: CALCIUM LEVEL 10.3 MG/DL (8.3-10.6); CARBON DIOXIDE LEVEL 24.0 MMOL/L (20-31); CHLORIDE LEVEL 106.0 MMOL/L (98-107); CREATININE FOR GFR 5.47 MG/DL (0.70-1.30); GLOMERULAR FILTRATION RATE 10.6 (>49); POTASSIUM SERUM 4.5 MMOL/L (3.5-5.1); SODIUM LEVEL 144.0 MMOL/L (136-145)
[2025-07-06] MEDS: LABETALOL 100 MG/20 ML VIAL IV STA ×2 (10:30→12:50)
[2025-07-06 10:33] LABS: APPEARANCE, URINE CLEAR (CLEAR); BACTERIA, URINE AUTO NEGATIVE (NEGATIVE); BILIRUBIN, URINE AUTO NEGATIVE (NEGATIVE); BLOOD, URINE BLOOD NEGATIVE (NEGATIVE); GLUCOSE, URINE (UA) AUTO NEGATIVE (NEGATIVE); KETONE, URINE AUTO NEGATIVE (NEGATIVE); LEUKOCYTE ESTERASE, URINE AUTO NEGATIVE (NEGATIVE); NITRITE, URINE AUTO NEGATIVE (NEGATIVE); PROTEIN, URINE AUTO NEGATIVE (NEGATIVE); RBC, URINE AUTO 0 /HPF (0-3); SPECIFIC GRAVITY URINE AUTO 1.005 (1.002-1.035); SQUAMOUS EPITHELIAL CELL UR AU 0 /HPF (0-6); UROBILINOGEN, URINE AUTO 0.2 mg/dL (0.0-2.0); WBC, URINE AUTO 1 /HPF (0-3)
[2025-07-06 10:50] LABS: POTASSIUM RANDOM URINE 19.0 MMOL/L; SODIUM,RANDOM URINE 55 MMOL/L
[2025-07-06 10:59] LABS: ALT/SGPT 12.0 U/L (7.0-40); AST/SGOT 13.0 U/L (<34)
[2025-07-06 11:01] LABS: MAGNESIUM LEVEL 1.7 MG/DL (1.8-2.4)
[2025-07-06 11:03] LABS: CPK CREATINE PHOSPHOKINASE 51.0 U/L (46-171)
[2025-07-06 11:07] LABS: OSMOLALITY SERUM 309.0 MOSM/KG (280-301)
[2025-07-06] MEDS: LIDOCAINE 2% 5 ML JELLY UROJET TOP ONE (12:12)
[2025-07-06] MEDS: ACETAMINOPHEN 500 MG TAB PO ONE (12:13)
[2025-07-06] MEDS ORDERED: MORPHINE 4 MG/ML 1 ML VIAL IV PRN (12:30)
[2025-07-06] MEDS: hydrALAZINE 20 MG/ML 1 ML VIAL IV STA (12:58)
[2025-07-06] MEDS: MAG SULF 1GM/100ML (MAG RUN) 1 GM in IV 1 EA IV ONE (13:17)
[2025-07-06 14:32] LABS: CORTISOL PM 26.1 UG/DL (3.1-16.7)
[2025-07-06 14:51] LABS: CK-MB VALUE MASS 1.1 NG/ML (<3.6)
[2025-07-06 14:53] LABS: CPK CREATINE PHOSPHOKINASE 50.0 U/L (46-171); MB/CK RELATIVE INDEX 2.2 (< OR =4)
[2025-07-06 15:10] LABS: AMPHETAMINES LEVEL URINE NEGATIVE (NEGATIVE); BARBITURATES URINE NEGATIVE (NEGATIVE); BENZODIAZEPINES URINE NEGATIVE (NEGATIVE); CANNABINOIDS URINE NEGATIVE (NEGATIVE); COCAINE METABOLITE URINE NEGATIVE (NEGATIVE); METHADONE URINE NEGATIVE (NEGATIVE); OPIATES URINE NEGATIVE (NEGATIVE); PHENCYCLIDINE URINE NEGATIVE (NEGATIVE)
[2025-07-06 17:31] VITALS: BP 194/98; TEMP 98.4; O2SAT 96
[2025-07-06] MEDS ORDERED: hydrALAZINE 20 MG/ML 1 ML VIAL IV PRN (17:40)
[2025-07-06] MEDS: ISOSORBIDE DINITRATE 10 MG TAB PO SCH (18:43)
[2025-07-06] MEDS: **hydrALAZINE HCL** 25 MG TAB PO SCH (18:44)
[2025-07-06] MEDS: hydrALAZINE 20 MG/ML 1 ML VIAL IV ONE (18:45)
[2025-07-06 19:54] VITALS: BP 140/67; TEMP 99.4; O2SAT 97
[2025-07-06 20:03] LABS: CK-MB VALUE MASS 1.7 NG/ML (<3.6)
[2025-07-06 20:05] LABS: CPK CREATINE PHOSPHOKINASE 57.0 U/L (46-171); MB/CK RELATIVE INDEX 2.98 (< OR =4)
[2025-07-06 21:10] LABS: CK-MB VALUE MASS 1.5 NG/ML (<3.6)
[2025-07-06] MEDS: HEPARIN SOD 5000 UNITS/ML 1 ML VIAL/SYRINGE SQ SCH (21:11)
[2025-07-06] MEDS: TAMSULOSIN 0.4 MG CAP PO SCH (21:11)
[2025-07-06 21:12] LABS: CPK CREATINE PHOSPHOKINASE 49.0 U/L (46-171); MB/CK RELATIVE INDEX 3.06 (< OR =4)
[2025-07-07] VITALS (7 sets, daily range): BP systolic 126–143; BP diastolic 64–81; TEMP 97.2–98.5; O2SAT 95–97
[2025-07-07 03:29] LABS: CPK CREATINE PHOSPHOKINASE 77.0 U/L (46-171)
[2025-07-07] MEDS: ACETAMINOPHEN 325 MG TAB PO PRN (04:35)
[2025-07-07 04:46] LABS: CK-MB VALUE MASS 1.7 NG/ML (<3.6); MB/CK RELATIVE INDEX 2.2 (< OR =4)
[2025-07-07 05:52] LABS: BASO # 0.1 10^3/uL (0.0-0.2); BASO % 0.4 % (0.0-1.0); EOS # 0.0 10^3/uL (0.0-0.5); EOS % 0.3 % (0.0-3.0); LYMPH # 0.8 10^3/uL (1.5-5.0); LYMPH % 6.1 % (24.0-44.0); MONO # 0.9 10^3/uL (0.0-0.8); MONO % 7.2 % (2.0-8.0); NEUTROPHILS # 11.1 10^3/uL (1.5-8.5); NEUTROPHILS % 85.6 % (36.0-66.0); PLATELET COUNT, AUTOMATED 269 10^3/uL (150-450)
[2025-07-07 06:20] LABS: CALCIUM LEVEL 9.6 MG/DL (8.3-10.6); CARBON DIOXIDE LEVEL 23.0 MMOL/L (20-31); CHLORIDE LEVEL 107.0 MMOL/L (98-107); CHOLESTEROL LEVEL 175.0 MG/DL (<200); CHOLESTEROL RISK RATIO 4.95 (<5); CREATININE FOR GFR 4.26 MG/DL (0.70-1.30); GLOMERULAR FILTRATION RATE 14.3 (>49); LDL CHOLESTEROL 110.5 MG/DL (<100); NON-HDL-C 139.7 MG/DL; POTASSIUM SERUM 4.4 MMOL/L (3.5-5.1); SODIUM LEVEL 143.0 MMOL/L (136-145); TRIGLYCERIDES LEVEL 146.0 MG/DL (<150)
[2025-07-07 06:35] LABS: ESTIMATED AVERAGE GLUCOSE 134.0 MG/DL (60-110)
[2025-07-07] MEDS: amLODIPine 10 MG TAB PO SCH (08:21)
[2025-07-07] MEDS: ATENOLOL 12.5 MG PER 1/2 TABLET PO SCH (08:21)
[2025-07-08 00:01] VITALS: BP 146/86; TEMP 98.3; O2SAT 96
[2025-07-08 04:21] VITALS: BP 150/86; TEMP 98.3; O2SAT 96
[2025-07-08 05:48] LABS: BASO # 0.1 10^3/uL (0.0-0.2); BASO % 0.7 % (0.0-1.0); EOS # 0.5 10^3/uL (0.0-0.5); EOS % 3.7 % (0.0-3.0); LYMPH # 1.3 10^3/uL (1.5-5.0); LYMPH % 10.3 % (24.0-44.0); MONO # 1.2 10^3/uL (0.0-0.8); MONO % 9.2 % (2.0-8.0); NEUTROPHILS # 9.7 10^3/uL (1.5-8.5); NEUTROPHILS % 75.2 % (36.0-66.0); PLATELET COUNT, AUTOMATED 285 10^3/uL (150-450)
[2025-07-08 06:17] LABS: CALCIUM LEVEL 9.9 MG/DL (8.3-10.6); CARBON DIOXIDE LEVEL 25.0 MMOL/L (20-31); CHLORIDE LEVEL 107.0 MMOL/L (98-107); CREATININE FOR GFR 3.09 MG/DL (0.70-1.30); GLOMERULAR FILTRATION RATE 21.0 (>49); POTASSIUM SERUM 5.2 MMOL/L (3.5-5.1); SODIUM LEVEL 143.0 MMOL/L (136-145)
[2025-07-08] MEDS: PATIROMER SORBITEX CALCIUM 8.4GM POWDER PACKET PO ONE (06:58)
[2025-07-08 07:36] VITALS: BP 148/80; TEMP 97.9; O2SAT 96
[2025-07-08] MEDS ORDERED: TAMS-18 PO ×2 (10:30→14:28)
[2025-07-08] MEDS ORDERED: ISOS10TA3 PO (10:32)
[2025-07-08] MEDS ORDERED: TALK1KIT MC (10:34)
[2025-07-08 12:00] VITALS: BP 117/73
[2025-07-08] MEDS ORDERED: ISOS10TA9 PO (14:28)
[2025-07-13 09:42] LABS: ALDOSTERONE LC < 1 ng/dL (see note); RENIN ACTIVITY 0.17 ng/mL/h (0.25-5.82)
== END 2025-07-08 12:50 | disposition home or self-care (01) | DRG 683 ==
LOC: M ED 09:23 → M ED INP 09:24 → M PCU 17:23 → OBSVTOIN 07-07 11:59
PROVIDERS: ADMIT General Practice; ATTEND General Practice
PROC: B246ZZZ Ultrasonography of Right and Left Heart (ICD-10-PCS; principal; 2025-07-06)
DX: N17.9 Acute kidney failure, unspecified (principal); I16.1 Hypertensive emergency; N13.4 Hydroureter; N13.30 Unspecified hydronephrosis; N40.1 Benign prostatic hyperplasia with lower urinary tract symptoms; N18.9 Chronic kidney disease, unspecified; I12.9 Hypertensive chronic kidney disease with stage 1 through stage 4 chronic kidney disease, or unspecified chronic kidney disease; N13.9 Obstructive and reflux uropathy, unspecified; Z96.652 Presence of left artificial knee joint; Z87.891 Personal history of nicotine dependence; Z79.899 Other long term (current) drug therapy

== ENCOUNTER → 2025-07-28 | Outpatient (REF) | payer MEDICARE ==
[~2025-07-28] MED LIST changes: +ISOS10TA3 PO; +ISOS10TA9 PO; +TALK1KIT MC
[2025-07-28 18:13] LABS: APPEARANCE, URINE TURBID (CLEAR); BACTERIA, URINE AUTO 1+ (NEGATIVE); BILIRUBIN, URINE AUTO NEGATIVE (NEGATIVE); BLOOD, URINE BLOOD 2+ (NEGATIVE); GLUCOSE, URINE (UA) AUTO 2+ mg/dL (NEGATIVE); KETONE, URINE AUTO NEGATIVE (NEGATIVE); LEUKOCYTE ESTERASE, URINE AUTO 3+ (NEGATIVE); MUCUS, URINE SMALL (NEGATIVE); NITRITE, URINE AUTO POSITIVE (NEGATIVE); PROTEIN, URINE AUTO 2+ mg/dL (NEGATIVE); RBC, URINE AUTO 76 /HPF (0-3); SPECIFIC GRAVITY URINE AUTO 1.008 (1.002-1.035); SQUAMOUS EPITHELIAL CELL UR AU 0 /HPF (0-6); UROBILINOGEN, URINE AUTO 0.2 mg/dL (0.0-2.0); WBC, URINE AUTO TNTC /HPF (0-3)
== END ==
LOC: M SMT 17:13
PROVIDERS: ATTEND Urology
DX: R33.8 Other retention of urine (principal)

== ENCOUNTER → 2025-08-03 | Outpatient (CLI) | payer MEDICARE | LOC: M WUC 08:25 | PROVIDERS: ATTEND Urology | DX: N40.1 Benign prostatic hyperplasia with lower urinary tract symptoms (principal) ==

== ENCOUNTER → 2025-08-14 | Outpatient (CLI) | payer MEDICARE ==
[2025-08-14 13:41] LABS: CREATININE, URINE 108.4 MG/DL; MALB URINE SIEMENS 133.0 MG/L; MAU/CREAT RATIO 122.6 MCG/MG (0.0-30.0); PSA SCREENING 8.43 NG/ML (< 4.00)
[2025-08-14 13:42] LABS: ALT/SGPT 30.0 U/L (7.0-40); AST/SGOT 15.0 U/L (<34); CALCIUM LEVEL 9.6 MG/DL (8.3-10.6); CARBON DIOXIDE LEVEL 28.0 MMOL/L (20-31); CHLORIDE LEVEL 103.0 MMOL/L (98-107); CHOLESTEROL LEVEL 245.0 MG/DL (<200); CHOLESTEROL RISK RATIO 5.61 (<5); CREATININE FOR GFR 1.46 MG/DL (0.70-1.30); GLOMERULAR FILTRATION RATE 51.7 (>49); LDL CHOLESTEROL 151.2 MG/DL (<100); NON-HDL-C 201.4 MG/DL; POTASSIUM SERUM 4.4 MMOL/L (3.5-5.1); SODIUM LEVEL 138.0 MMOL/L (136-145); TRIGLYCERIDES LEVEL 251.0 MG/DL (<150)
[2025-08-14 13:47] LABS: ESTIMATED AVERAGE GLUCOSE 183.0 MG/DL (60-110)
== END ==
LOC: M WUC 10:04
PROVIDERS: ATTEND Nurse Practitioner Family
DX: I10 Essential (primary) hypertension (principal); E11.9 Type 2 diabetes mellitus without complications; E78.5 Hyperlipidemia, unspecified; R97.20 Elevated prostate specific antigen [PSA]; Z12.5 Encounter for screening for malignant neoplasm of prostate
CPT/HCPCS: 36415; 80053; 80061; 82043; 83036; G0103

== ENCOUNTER → 2025-09-03 | Outpatient (REF) | payer MEDICARE ==
[2025-09-03 14:25] LABS: APPEARANCE, URINE HAZY (CLEAR); BACTERIA, URINE AUTO 3+ (NEGATIVE); BILIRUBIN, URINE AUTO NEGATIVE (NEGATIVE); BLOOD, URINE BLOOD 1+ (NEGATIVE); GLUCOSE, URINE (UA) AUTO 3+ mg/dL (NEGATIVE); KETONE, URINE AUTO NEGATIVE (NEGATIVE); LEUKOCYTE ESTERASE, URINE AUTO 3+ (NEGATIVE); MUCUS, URINE SMALL (NEGATIVE); NITRITE, URINE AUTO NEGATIVE (NEGATIVE); PROTEIN, URINE AUTO NEGATIVE (NEGATIVE); RBC, URINE AUTO 5 /HPF (0-3); SPECIFIC GRAVITY URINE AUTO 1.018 (1.002-1.035); SQUAMOUS EPITHELIAL CELL UR AU 0 /HPF (0-6); UROBILINOGEN, URINE AUTO 0.2 mg/dL (0.0-2.0); WBC, URINE AUTO 116 /HPF (0-3)
== END ==
LOC: M SMT 13:01
PROVIDERS: ATTEND Urology
DX: N39.0 Urinary tract infection, site not specified (principal)

== ENCOUNTER 2025-09-19 08:05 | Emergency (ER) | payer MEDICARE ==
[~2025-09-19] VITALS: Ht 172.7 cm; Wt 84.1 kg
[2025-09-19 08:10] VITALS: TEMP 98
[2025-09-19] MEDS ORDERED: CIPR500T39 (08:16)
[2025-09-19] MEDS ORDERED: METF-838 (08:16)
[2025-09-19] MEDS ORDERED: APAP325T4 PO (08:16)
[2025-09-19 11:45] LABS: BASO # 0.1 10^3/uL (0.0-0.2); BASO % 0.5 % (0.0-1.0); EOS # 0.0 10^3/uL (0.0-0.5); EOS % 0.2 % (0.0-3.0); LYMPH # 1.3 10^3/uL (1.5-5.0); LYMPH % 7.7 % (24.0-44.0); MONO # 1.1 10^3/uL (0.0-0.8); MONO % 6.0 % (2.0-8.0); NEUTROPHILS # 14.8 10^3/uL (1.5-8.5); NEUTROPHILS % 85.1 % (36.0-66.0); PLATELET COUNT, AUTOMATED 297 10^3/uL (150-450)
[2025-09-19 12:14] LABS: ALT/SGPT 36.0 U/L (7.0-40); AST/SGOT 17.0 U/L (<34); CALCIUM LEVEL 10.0 MG/DL (8.3-10.6); CARBON DIOXIDE LEVEL 23.0 MMOL/L (20-31); CHLORIDE LEVEL 101.0 MMOL/L (98-107); CREATININE FOR GFR 1.12 MG/DL (0.70-1.30); GLOMERULAR FILTRATION RATE 71.1 (>49); POTASSIUM SERUM 4.6 MMOL/L (3.5-5.1); SODIUM LEVEL 136.0 MMOL/L (136-145)
[2025-09-19] MEDS: HumuLIN R (REGULAR) INSULIN (NovoLIN R) **100 U/ML** PER UNIT SC STA (12:44)
[2025-09-19 12:46] LABS: ESTIMATED AVERAGE GLUCOSE 252.0 MG/DL (60-110)
[2025-09-19 13:17] LABS: KETONE, URINE AUTO RFX NEGATIVE (NEGATIVE); LEUKOCYTE ESTERASE UR AUTO RFX NEGATIVE (NEGATIVE); NITRITE, URINE AUTO RFX NEGATIVE (NEGATIVE); RBC, URINE AUTO RFX 1 /HPF (0-3); SQUAM EPITHELIAL CELL UR AURFX 0 /HPF (0-6); WBC, URINE AUTO RFX 4 /HPF (0-3)
[2025-09-19 14:02] VITALS: BP 169/85; O2SAT 98
[2025-09-19] MEDS ORDERED: LANTINJ4 SC (14:02)
[2025-09-19] MEDS ORDERED: BLOO-76 MC (14:02)
[2025-09-19] MEDS ORDERED: BLOO1STR9 VI (17:34)
[2025-09-19] MEDS ORDERED: LANCMIS33 TOP (17:34)
== END 2025-09-19 14:15 | disposition home or self-care (01) ==
LOC: M ED 08:05
DX: S82.431A Displaced oblique fracture of shaft of right fibula, initial encounter for closed fracture (principal); Y92.019 Unspecified place in single-family (private) house as the place of occurrence of the external cause; Y93.9 Activity, unspecified; Y99.9 Unspecified external cause status; W10.8XXA Fall (on) (from) other stairs and steps, initial encounter; E11.65 Type 2 diabetes mellitus with hyperglycemia; D72.829 Elevated white blood cell count, unspecified; I10 Essential (primary) hypertension; N40.0 Benign prostatic hyperplasia without lower urinary tract symptoms; F10.10 Alcohol abuse, uncomplicated; Z91.09 Other allergy status, other than to drugs and biological substances; Z79.1 Long term (current) use of non-steroidal anti-inflammatories (NSAID); Z79.4 Long term (current) use of insulin; Z79.84 Long term (current) use of oral hypoglycemic drugs; Z79.899 Other long term (current) drug therapy
CPT/HCPCS: 29515; 73610; 80053; 81001; 83036; 85025; 96372; 99284; J1815

== ENCOUNTER → 2025-09-22 | Outpatient (CLI) | payer MEDICARE ==
[~2025-09-22] MED LIST changes: +APAP325T4 PO; +BLOO-76 MC; +BLOO1STR9 VI; +CIPR500T39; +LANCMIS33 TOP; +LANTINJ4 SC; +METF-838
== END ==
LOC: M SOG 08:40
PROVIDERS: ATTEND Student in an Organized Health Care Education/Training Program
DX: M25.571 Pain in right ankle and joints of right foot (principal); M79.671 Pain in right foot; S82.831D Other fracture of upper and lower end of right fibula, subsequent encounter for closed fracture with routine healing

== ENCOUNTER → 2025-10-05 | Outpatient (CLI) | payer MEDICARE | LOC: M WUC 10:09 | PROVIDERS: ATTEND Nurse Practitioner Family | DX: R97.20 Elevated prostate specific antigen [PSA] (principal) ==

== ENCOUNTER → 2025-10-06 | Outpatient (CLI) | payer MEDICARE | LOC: M SOG 07:32 | PROVIDERS: ATTEND Physician Assistant | DX: S82.61XA Displaced fracture of lateral malleolus of right fibula, initial encounter for closed fracture (principal); Y93.9 Activity, unspecified; Y92.9 Unspecified place or not applicable ==

== ENCOUNTER → 2025-10-22 | Outpatient (CLI) | payer MEDICARE ==
[~2025-10-22] MED LIST changes: +LEVO1TAB39 PO
== END ==
LOC: M SOG 07:34
PROVIDERS: ATTEND Physician Assistant
DX: S82.61XD Displaced fracture of lateral malleolus of right fibula, subsequent encounter for closed fracture with routine healing (principal)

== ENCOUNTER 2025-10-23 15:48 | Emergency (ER) | payer MEDICARE ==
[~2025-10-23] VITALS: Ht 172.7 cm; Wt 84.1 kg
[~2025-10-23 15:48] MED LIST changes: -LEVO1TAB39 PO
[2025-10-23 18:01] LABS: KETONE, URINE AUTO RFX NEGATIVE (NEGATIVE); MUCUS, URINE RFX SMALL (NEGATIVE); NITRITE, URINE AUTO RFX NEGATIVE (NEGATIVE); RBC, URINE AUTO RFX 13 /HPF (0-3); SQUAM EPITHELIAL CELL UR AURFX 0 /HPF (0-6)
[2025-10-23 18:03] LABS: LEUKOCYTE ESTERASE UR AUTO RFX 2+ (NEGATIVE); WBC, URINE AUTO RFX TNTC /HPF (0-3)
[2025-10-23 18:47] VITALS: BP 143/79; TEMP 97.8; O2SAT 99
[2025-10-23 19:25] LABS: Trichomonas vaginalis (AMP) NOT DETECTED (NEGATIVE)
[2025-10-23] MEDS ORDERED: LEVO1TAB39 PO (19:25)
[2025-10-23 19:49] LABS: GC DNA AMPLIFICATION NEGATIVE (NEGATIVE)
== END 2025-10-23 19:38 | disposition home or self-care (01) ==
LOC: M ED 15:48
DX: N45.3 Epididymo-orchitis (principal); K40.90 Unilateral inguinal hernia, without obstruction or gangrene, not specified as recurrent; E11.9 Type 2 diabetes mellitus without complications; N40.0 Benign prostatic hyperplasia without lower urinary tract symptoms; Z91.09 Other allergy status, other than to drugs and biological substances; Z79.1 Long term (current) use of non-steroidal anti-inflammatories (NSAID); Z79.4 Long term (current) use of insulin; Z79.84 Long term (current) use of oral hypoglycemic drugs; Z79.899 Other long term (current) drug therapy

== ENCOUNTER → 2025-11-03 | Outpatient (CLI) | payer MEDICARE ==
[~2025-11-03] MED LIST changes: +LEVO1TAB39 PO
== END ==
LOC: M SOG 07:38
PROVIDERS: ATTEND Physician Assistant
DX: S82.61XA Displaced fracture of lateral malleolus of right fibula, initial encounter for closed fracture (principal); Y93.9 Activity, unspecified; Y92.9 Unspecified place or not applicable